=== PATIENT | female | born 1940 | race Caucasian/White ===

== ENCOUNTER 2016-11-15 07:28 | Day surgery (SDC) | payer OTHER ==
[2016-11-15] MEDS ORDERED: TETRACAINE 0.5% OPHTH 1 DOSE AFFEYE ONE ×4 (08:00→10:36)
[2016-11-15] MEDS ORDERED: VIGAMOX 0.5% OPHTH 1 DOSE AFFEYE ONE ×5 (08:01→10:48)
[2016-11-15] MEDS ORDERED: NS 500 ML IV 500 ML IV ONE (08:05)
[2016-11-15] MEDS ORDERED: PROLENSA OPHTH 1 DOSE AFFEYE ONE (08:12)
[2016-11-15] MEDS ORDERED: ALPHAGAN-P OPHTH 1 DOSE AFFEYE ONE (08:13)
[2016-11-15] MEDS ORDERED: MYDRIACIL OPHTH 1 DOSE AFFEYE ONE ×5 (08:14→08:18)
[2016-11-15] MEDS ORDERED: AK-DILATE 2.5% OPHTH 1 DOSE OP ONE ×5 (08:14→08:18)
[2016-11-15] MEDS ORDERED: CYCLOGYL 1% OPHTH 1 DOSE OP ONE ×5 (08:14→08:18)
[2016-11-15] MEDS ORDERED: BETADINE OPHTH SOLN 5% EACHEYE ONE (10:15)
[2016-11-15] MEDS ORDERED: XYLOCAINE-MPF 1% IJ ONE ×2 (10:21→10:36)
[2016-11-15] MEDS ORDERED: BSS OPHTH (PLAIN) 500 ML with VANCOMYCIN HCL 500 MG VIAL 25 MG, ADRENALINE CHL INJ 1 MG IR ONE ×6 (10:21)
[2016-11-15] MEDS ORDERED: ADRENALINE CHL INJ IJ ONE ×2 (10:21→10:36)
[2016-11-15] MEDS ORDERED: DUOVISC IO ONE ×2 (10:21→10:36)
[2016-11-15 12:19] VITALS: BP 139/70
[2016-11-15] MEDS ORDERED: DUONEB 0.5 MG/3 MG ONE (12:20)
[2016-11-15] MEDS ORDERED: DIPRIVAN VIAL ONE (15:47)
[2016-11-15] MEDS ORDERED: VERSED ONE (15:47)
== END 2016-11-15 11:15 | disposition home or self-care (01) ==
LOC: SURG1 07:28 → EDSEX 07:28 → SURG1 11:15
PROVIDERS: ATTEND Ophthalmology
PROC: 08DJ3ZZ Extraction of Right Lens, Percutaneous Approach (ICD-10-PCS; principal; 2016-11-15 14:00)
PROC: 08RJ3JZ Replacement of Right Lens with Synthetic Substitute, Percutaneous Approach (ICD-10-PCS; principal; 2016-11-15 14:00)
DX: H25.11 Age-related nuclear cataract, right eye (principal); H25.011 Cortical age-related cataract, right eye; H52.221 Regular astigmatism, right eye
CPT/HCPCS: 99100; A4217; J0170; J2250; J3370; J3490; J7620